=== PATIENT | female | born 1980 | race Caucasian/White ===

== ENCOUNTER 2017-10-22 10:02 | Day surgery (SDC) | payer BC ==
[~2017-10-22] VITALS: Ht 165.1 cm; Wt 93.1 kg
[~2017-10-22 10:02] MED LIST: AMOXICILLIN500 M1 PO; BCP; EFFEXOR XR75 MG PO; EFFEXOR75 MG PO; ENDOCET 5-3251 EACH PO; ENDOMETRIN100 MG VG; ESTRACE0.5 MG PO; IBUPROFEN800 MG PO; PRENATAL TABLE1 EAC3 PO; ZYRTEC10 M3 PO
[2017-10-22 10:39] VITALS: BP 134/83
[2017-10-22 14:15] VITALS: BP 137/67
[2017-10-22 15:05] VITALS: BP 119/74
== END 2017-10-22 15:13 | disposition home or self-care (01) ==
LOC: SDC 10:02
DX: N84.0 Polyp of corpus uteri (principal); N93.9 Abnormal uterine and vaginal bleeding, unspecified; E28.2 Polycystic ovarian syndrome; F41.9 Anxiety disorder, unspecified
CPT/HCPCS: 88305; J0131; J1100; J1885; J2250; J2405; J3010